=== PATIENT | male | born 1980 | race Caucasian/White ===

== ENCOUNTER 2021-07-29 06:23 | Emergency (ER) | payer OTHER ==
[~2021-07-29] VITALS: Ht 185.4 cm; Wt 79.4 kg
[2021-07-29 06:30] VITALS: BP 146/98
[2021-07-29] MEDS ORDERED: DOXYCYCLINE 10100 MG PO (06:54)
== END 2021-07-29 07:01 | disposition home or self-care (01) ==
LOC: ER 06:23
DX: L08.9 Local infection of the skin and subcutaneous tissue, unspecified (principal); L02.512 Cutaneous abscess of left hand; L02.511 Cutaneous abscess of right hand; F15.10 Other stimulant abuse, uncomplicated

== ENCOUNTER 2021-08-10 10:11 | Emergency (ER) | payer OTHER ==
[~2021-08-10] VITALS: Ht 185.4 cm; Wt 79.4 kg
[~2021-08-10 10:11] MED LIST: DOXYCYCLINE 10100 MG PO
[2021-08-10 10:13] VITALS: BP 137/85
[2021-08-10] MEDS ORDERED: DOXYCYCLINE 10100 MG PO (10:33)
== END 2021-08-10 10:42 | disposition home or self-care (01) ==
LOC: ER 10:11
DX: S61.402D Unspecified open wound of left hand, subsequent encounter (principal); S61.401D Unspecified open wound of right hand, subsequent encounter; F17.210 Nicotine dependence, cigarettes, uncomplicated; Z79.899 Other long term (current) drug therapy; X58.XXXD Exposure to other specified factors, subsequent encounter